=== PATIENT | female | born 1950 | race Two or more races ===

== ENCOUNTER → 2022-04-13 07:13 | Outpatient (CLI) | payer OTHER | END | disposition home or self-care (01) | LOC: NUCLEAR 07:00 | PROVIDERS: ATTEND Internal Medicine Hematology & Oncology | DX: E07.89 Other specified disorders of thyroid (principal) | CPT/HCPCS: 78014; A9512 ==

== ENCOUNTER 2022-09-28 11:17 | Outpatient (CLI) | payer OTHER | END 2022-09-28 11:20 | disposition home or self-care (01) | LOC: RAD 11:17 | PROVIDERS: ATTEND Ophthalmology | DX: H25.011 Cortical age-related cataract, right eye (principal); Z98.41 Cataract extraction status, right eye ==

== ENCOUNTER → 2022-11-23 10:33 | Outpatient (CLI) | payer OTHER | END | disposition home or self-care (01) | LOC: EKG 10:33 → LAB 10:33 | PROVIDERS: ATTEND Ophthalmology | DX: I10 Essential (primary) hypertension (principal) ==

== ENCOUNTER 2023-05-10 10:41 | Outpatient (CLI) | payer OTHER | END 2023-05-10 10:46 | disposition home or self-care (01) | LOC: RAD 10:41 | PROVIDERS: ATTEND Ophthalmology | DX: H25.011 Cortical age-related cataract, right eye (principal); Z98.41 Cataract extraction status, right eye ==

== ENCOUNTER 2023-05-29 08:13 | Outpatient (CLI) | payer OTHER | END 2023-05-29 14:25 | disposition home or self-care (01) | LOC: LAB 08:13 | PROVIDERS: ATTEND Ophthalmology | DX: I10 Essential (primary) hypertension (principal); I11.9 Hypertensive heart disease without heart failure; D68.8 Other specified coagulation defects; H25.013 Cortical age-related cataract, bilateral ==